=== PATIENT | male | born 1990 | race African-American/Black ===

== ENCOUNTER 2021-03-21 22:34 | Emergency (ER) | payer OTHER, BC ==
[~2021-03-21] VITALS: Ht 177.8 cm; Wt 81.8 kg
[2021-03-21 22:55] VITALS: BP 139/82
--- NOTE | 2021-03-22 00:07 | REPVR ---
PROCEDURE INFORMATION: Exam: CT Cervical Spine Without Contrast Exam date and time: 03/21/2021 11:30 PM Age: 31 years old Clinical indication: Injury or trauma; Fall; Blunt trauma; Additional info: Fall from 7ft landing on feet TECHNIQUE: Imaging protocol: Computed tomography images of the cervical spine without contrast. Radiation optimization: All CT scans at this facility use at least one of these dose optimization techniques: automated exposure control; mA and/or kV adjustment per patient size (includes targeted exams where dose is matched to clinical indication); or iterative reconstruction. COMPARISON: No relevant prior studies available. FINDINGS: Bones/joints: No segmental vertebral malalignment. Vertebral body height is maintained at all levels. No acute fracture. No destructive or blastic cervical spine osseous lesion. Discs/Spinal canal/Neural foramina: Intervertebral disc spaces are appropriate for age. Lungs: Imaged lung apices demonstrate no concerning abnormality. Pleural spaces: No apical pneumothorax. Soft tissues: Soft tissues show no concerning abnormality or asymmetry. IMPRESSION: No acute fracture or traumatic segmental cervical malalignment. Electronically signed by: Donnie Donald On 03/22/2021 00:06:27 AM
--- NOTE | 2021-03-22 00:08 | REPVR ---
PROCEDURE INFORMATION: Exam: CT Thoracic Spine Without Contrast Exam date and time: 03/21/2021 11:30 PM Age: 31 years old Clinical indication: Pain in thoracic spine; Additional info: Fall from 7ft landing on feet TECHNIQUE: Imaging protocol: Computed tomography images of the thoracic spine without contrast. Radiation optimization: All CT scans at this facility use at least one of these dose optimization techniques: automated exposure control; mA and/or kV adjustment per patient size (includes targeted exams where dose is matched to clinical indication); or iterative reconstruction. COMPARISON: CT Spine, lumbar w/o contrast 03/21/2021 11:38 PM FINDINGS: Vertebrae: No segmental malalignment of the vertebral bodies. Vertebral body height is maintained. No fracture or destructive process. Discs/Spinal canal/Neural foramina: Intervertebral disc height is maintained, appropriate for age. Soft tissues: No paraspinous soft tissue mass or focal soft tissue edema. IMPRESSION: No fracture or other acute abnormality involving the thoracic spine. Electronically signed by: Donnie Donald On 03/22/2021 00:08:16 AM
--- NOTE | 2021-03-22 00:10 | REPVR ---
PROCEDURE INFORMATION: Exam: CT Lumbar Spine Without Contrast Exam date and time: 03/21/2021 11:30 PM Age: 31 years old Clinical indication: Low back pain; Additional info: Fall from 7ft landing on feet TECHNIQUE: Imaging protocol: Computed tomography images of the lumbar spine without contrast. Radiation optimization: All CT scans at this facility use at least one of these dose optimization techniques: automated exposure control; mA and/or kV adjustment per patient size (includes targeted exams where dose is matched to clinical indication); or iterative reconstruction. COMPARISON: No relevant prior studies available. FINDINGS: Vertebrae: No segmental lumbar vertebral malalignment. Transitional vertebral segment is present at the lumbosacral junction. Vertebral body height and morphology is maintained. No acute fracture or destructive process. Discs/Spinal canal/Neural foramina: Intervertebral disc height is maintained for age. Disc bulges in the lower 3 lumbar levels Vasculature: No dilatation of the imaged distal abdominal aorta. Soft tissues: No significant soft tissue abnormality of the imaged retroperitoneum. IMPRESSION: 1. No fracture or other acute osseous abnormality involving the lumbar spine. 2. Incompletely imaged lower lumbar spine disc bulges Electronically signed by: Donnie Donald On 03/22/2021 00:10:27 AM
--- OUTSIDE RECORDS SUMMARY | 2021-03-22 00:54 | CCD ---
Author Author [facility] Address Unknown Phone Unavailable Support Name Relationship Address Phone [facility] [place] [address] [place] Next Of Kin [address] [place] [address] [place] [address] Re-disclosure Warning The records that you are about to access may contain information from federally-assisted alcohol or drug abuse programs. If such information is present, then the following federally mandated warning applies: This information has been disclosed to you from records protected by federal confidentiality rules (42 CFR part 2). The federal rules prohibit you from making any further disclosure of this information unless further disclosure is expressly permitted by the written consent of the person to whom it pertains or as otherwise permitted by 42 CFR part 2. A general authorization for the release of medical or other information is NOT sufficient for this purpose. The Federal rules restrict any use of the information to criminally investigate or prosecute any alcohol or drug abuse patient.The records that you are about to access may contain highly sensitive health information, the redisclosure of which is protected by Article 27-F of the [facility] Public Health law. If you continue you may have access to information: Regarding HIV / AIDS; Provided by facilities licensed or operated by the [facility] Office of Mental Health; or Provided by the [facility] Office for People With Developmental Disabilities. If such information is present, then the following [facility] mandated warning applies: This information has been disclosed to you from confidential records which are protected by state law. State law prohibits you from making any further disclosure of this information without the specific written consent of the person to whom it pertains, or as otherwise permitted by law. Any unauthorized further disclosure in violation of state law may result in a fine or half-way sentence or both. A general authorization for the release of medical or other information is NOT sufficient authorization for further disc losure. Medications No Information Insurance Providers Payer name Policy type / Coverage type Policy ID Covered alliance party ID Covered alliance party's relationship to sumner Policy [place] Plan Information [facility] [phone] [id number] SP [id number] [employer] [facility] [id number] SP [id number] Problems, Conditions, and Diagnoses No Information Surgeries/Procedures No Information Results No Information Social History No Information
== END 2021-03-22 01:08 | disposition home or self-care (01) ==
LOC: M ED 22:34
DX: S33.5XXA Sprain of ligaments of lumbar spine, initial encounter (principal); S13.4XXA Sprain of ligaments of cervical spine, initial encounter; W17.89XA Other fall from one level to another, initial encounter; Y92.9 Unspecified place or not applicable; Y93.9 Activity, unspecified; Y99.1 Military activity